=== PATIENT | male | born 1975 | race Caucasian/White ===

== ENCOUNTER 2016-12-27 12:03 | Observation (INO) ==
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
[2016-12-27 13:01] LABS: Basophils # 0.1 K/mcL (0.0-0.2); Basophils % 0.6 %; Eosinophils # 0.2 K/mcL (0.0-0.6); Eosinophils % 2.7 %; Hematocrit 46.7 % (37.5-50.1); Hemoglobin 15.6 g/dL (12.9-16.9); Immature Granulocytes % 0.2 % (0-4); Lymphocytes # 2.8 K/mcL (0.6-4.6); Lymphocytes % 33.7 %; Mean Corpuscular HGB Conc 33.4 g/dL (31.6-35.5); Mean Corpuscular Hemoglobin 29.5 pg (28.0-33.3); Mean Corpuscular Volume 88.3 fL (83.0-100.0); Mean Platelet Volume 9.4 fL (9.4-12.4); Monocytes # 0.7 K/mcL (0.0-1.3); Monocytes % 8.5 %; Neutrophils # 4.5 K/mcL (1.6-8.9); Platelet Count 284 K/mcL (140-400); Red Blood Count 5.29 M/mcL (4.19-5.50); Red Cell Distribution Width 11.9 % (11.5-14.5); Segmented Neutrophils % 54.3 %
[2016-12-27 13:16] LABS: Alanine Aminotransferase 36 Units/L (0-55); Albumin 4.2 g/dL (3.5-5.0); Alkaline Phosphatase 86 Units/L (38-126); Aspartate Amino Transferase 34 Units/L (5-34); BUN/Creatinine Ratio 19 (6-26); Blood Urea Nitrogen 22 mg/dL (8-26); Calcium 9.7 mg/dL (8.6-10.8); Carbon Dioxide 24 mEq/L (19-29); Chloride 100 mEq/L (98-109); Globulin 4.1 g/dL (2.4-3.5); Glucose 92 mg/dL (70-99); Osmolality,Calculated 277 (280-300); Potassium 3.4 mEq/L (3.5-4.5); Sodium 132 mEq/L (136-145); Total Protein 8.3 g/dL (6.0-8.3); eGFR For African Americans > 60 (> 60); eGFR For Non-African Americans > 60 (> 60)
[2016-12-27 13:22] LABS: Acetaminophen < 1.0 mcg/mL (10-30); Ethanol < 10 mg/dL (0-10); Salicylate < 5.0 mg/dL (15-30)
[2016-12-27 13:31] LABS: Amphetamine Screen,Urine Positive ng/mL (Cutoff=1000); Barbiturate Screen,Urine Negative ng/mL (Cutoff=200); Benzodiazepines Screen,Urine Positive ng/mL (Cutoff=200); Cannabinoid Screen,Urine Positive ng/mL (Cutoff = 50); Cocaine Screen,Urine Negative ng/mL (Cutoff= 300); Opiate Screen,Urine Negative ng/mL (Cutoff=300); Phencyclidine Screen,Urine Negative ng/mL (Cutoff=25)
[2016-12-27] MEDS ORDERED: Ammonia Inhalant AMPUL IH ONE (15:15)
[2016-12-27] MEDS ORDERED: Mag Hydrox/Al Hydrox/Simeth 30 ML UDC PO PRN (19:11)
[2016-12-27] MEDS ORDERED: Haloperidol Lactate 5 MG/ML VIAL IM PRN (19:11)
[2016-12-27] MEDS ORDERED: traZODone 50 MG TABLET PO PRN (19:11)
[2016-12-27] MEDS ORDERED: MOM Conc 10 ML UD.LIQ PO PRN (19:11)
[2016-12-27] MEDS ORDERED: Ibuprofen 400 MG TABLET PO PRN (19:11)
[2016-12-27] MEDS ORDERED: *HR* LORazepam 2 MG/ML VIAL IM PRN (19:11)
[2016-12-27] MEDS ORDERED: *HR* LORazepam 1 MG TABLET PO PRN (19:11)
[2016-12-27] MEDS ORDERED: hydrOXYzine pamoate 25 MG CAPSULE PO PRN (19:11)
[2016-12-27] MEDS ORDERED: *HR* LORazepam 2 MG/ML VIAL IVP ONE (19:39)
[2016-12-27] MEDS ORDERED: Ziprasidone injection 20 MG/ML VIAL IM ONE ×2 (20:32→20:35)
[2016-12-27] MEDS ORDERED: Nicotine 2 MG GUM BC PRN (21:49)
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
[2016-12-28 11:37] VITALS: BP 123/78
== END 2016-12-28 14:05 | disposition home or self-care (01) ==
LOC: EMEROO 12:03 → INTOOBSV 19:08 → 1ANU 19:08
PROVIDERS: ADMIT Psychiatry & Neurology Psychiatry; ATTEND Psychiatry & Neurology Psychiatry

== ENCOUNTER 2017-01-19 14:46 | Observation (INO) ==
[2017-01-19 15:37] LABS: Basophils # 0.1 K/mcL (0.0-0.2); Basophils % 0.9 %; Eosinophils # 0.2 K/mcL (0.0-0.6); Eosinophils % 3.1 %; Hemoglobin 15.5 g/dL (12.9-16.9); Immature Granulocytes % 0.1 % (0-4); Lymphocytes # 2.8 K/mcL (0.6-4.6); Lymphocytes % 42.2 %; Mean Corpuscular HGB Conc 33.7 g/dL (31.6-35.5); Mean Corpuscular Hemoglobin 29.6 pg (28.0-33.3); Monocytes # 0.6 K/mcL (0.0-1.3); Monocytes % 8.4 %; Platelet Count 355 K/mcL (140-400); Red Blood Count 5.23 M/mcL (4.19-5.50); Red Cell Distribution Width 11.9 % (11.5-14.5); Segmented Neutrophils % 45.3 %
[2017-01-19 15:52] LABS: BUN/Creatinine Ratio 15 (6-26); Blood Urea Nitrogen 16 mg/dL (8-26); Calcium 9.7 mg/dL (8.6-10.8); Carbon Dioxide 27 mEq/L (19-29); Chloride 104 mEq/L (98-109); Glucose 93 mg/dL (70-99); Osmolality,Calculated 289 (280-300); Potassium 3.8 mEq/L (3.5-4.5); Sodium 139 mEq/L (136-145); eGFR For African Americans > 60 (> 60); eGFR For Non-African Americans > 60 (> 60)
[2017-01-19 15:55] LABS: Acetaminophen < 1.0 mcg/mL (10-30); Ethanol < 10 mg/dL (0-10); Salicylate < 5.0 mg/dL (15-30)
[2017-01-19] MEDS ORDERED: *HR* LORazepam 1 MG TABLET PO ONE (16:07)
--- NOTE | 2017-01-19 16:07 | Emergency Department Note ---
Disposition Clinical Impression: Psychosis Qualifiers: Psychosis type: other Qualified Code(s): F28 - Other psychotic disorder not due to a substance or known physiological condition Disposition: Admitted As Inpatient Condition: Fair Referrals: NONE,PCP [Primary Care Provider] - Forms: ED Satisfaction Letter Time of Disposition: 20:02 Psych HPI - General Chief Complaint: ED Psychiatric Symptoms Stated Complaint: hallucinations Time Seen by Provider: 01/19/17 14:49 Source: EMS - History of Present Illness HPI Narrative: Mr. Peguero is a 41-year-old male with past medical history of anxiety and depression. He presents to the ED with a 1 day history of possible visual hallucinations. Patient was mandated here by law enforcement as he was found with a scope on his BB gun trying to catch his neighbors in the act of stealing his possessions. Patient says he caught his neighbors staring at him in the [place] with their faces painted white with black stripes. Patient said he has been so tired lately that he used methamphetamine so he could work to provide for his family. Patient is very confused upon questioning. 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 He has been very embarrassed about this diagnosis and has not sought out treatment. The last several months the patient's personality has changed significantly and he has become very somnolent. She states that she has been scared as he seems to be having these recurrent hallucinations. - Related Data Home Medications Medication Instructions Recorded Confirmed Paxil 12/27/16 Xanax 12/27/16 Allergies Allergy/AdvReac Type Severity Reaction Status Date / Time No Known Allergies Allergy Verified 01/19/17 14:47 All systems ED: reviewed and negative except as stated. Review of Systems: As Per HPI Constitutional: Denies: fever Cardiovascular: Denies: chest pain, palpitations Respiratory: Denies: cough, dyspnea Gastrointestinal: Denies: abdominal pain, nausea, vomiting Genitourinary: Denies: urgency, dysuria Neurological: Reports: confusion. Denies: headache, abnormal gait Endocrine: Reports: fatigue Past Medical History - Past Medical History Medical history: Reports: no medical history Psychiatric history: Reports: anxiety, depression, previous psychiatric hospitalization - Social History Smoking Status: Current every day smoker Smokeless Tobacco Status: No Alcohol use: Reports: rarely Drug use: Reports: marijuana, methamphetamine Physical Exam - General Limitations: altered mental status General appearance: alert, anxious - Head Head exam: atraumatic, normocephalic - Eye Eye exam: Present: PERRL, EOMI, conjunctival injection. Absent: nystagmus - ENT ENT exam: normal exam - Respiratory Respiratory exam: Present: normal lung sounds bilaterally. Absent: respiratory distress, wheezes, stridor - Cardiovascular Cardiovascular exam: Present: regular rate, normal rhythm. Absent: systolic murmur, diastolic murmur, rubs, gallop - Abdominal Exam Abdominal exam: Present: soft, Non-Tender - Extremities Exam Extremities exam: Present: other (Patient with multiple scratches all over his extremities. No lacerations. ). Absent: pedal edema - Neurological Exam Neurological exam: Present: alert, oriented X3, CN II-XII intact - Psychiatric Psychiatric exam: Present: other (Patient seems confused and has a difficult time concentrating. Somewhat somnolent.) Course Course Narrative: 41-year-old male with past medical history of Luh disease presents by law enforcement with several day history of potential hallucinations. Will order psychiatric clearance labs and testing. Will attempt to contact patient' s - Reevaluation(s) Reevaluation #1: Psych 1A has visited the patient. Fe from [facility] spoke with patient's . Patient was just admitted for almost identical circumstances 1 week ago. Patient 's disclosed past medical history and confirms the patient's personality has changed significantly over the past few months. [facility] will admit patient after we order a scan of her head. CT without contrast was ordered. Reevaluation #2: CT scan of the head shows no acute abnormalities. Will transfer to . Vital Signs Temperature 97.5 F L 01/19/17 14:49 Pulse Rate 96 01/19/17 14:49 Respiratory Rate 22 01/19/17 14:49 Blood Pressure 135/91 01/19/17 14:49 O2 Sat by Pulse Oximetry 97 01/19/17 14:49 Temperature 97.5 F L 01/19/17 14:49 Pulse Rate 82 01/19/17 15:19 Respiratory Rate 22 01/19/17 15:19 Blood Pressure 132/91 01/19/17 15:19 O2 Sat by Pulse Oximetry 100 01/19/17 15:19 Oxygen Delivery Oxygen Delivery Room Air Psych - Medical Records Medical records reviewed: Yes I reviewed the patient's medical records. - Lab Data Lab results reviewed: Yes I reviewed the patient's lab results. Result diagrams: 01/19/17 15:24 01/19/17 15:24 Lab Results 01/19/17 01/19/17 01/19/17 Range/Units 15:18 15:20 15:20 WBC (4.3-11.1) K/mcL RBC (4.19-5.50) M/mcL Hgb (12.9-16.9) g/dL Hct (37.5-50.1) % MCV (83.0-100.0) fL MCH (28.0-33.3) pg MCHC (31.6-35.5) g/dL RDW (11.5-14.5) % Plt Count (140-400) K/mcL MPV (9.4-12.4) fL Immature Gran % (0-4) % Seg Neutrophils % % Lymphocytes % % Monocytes % % Eosinophils % % Basophils % % Neutrophils # (1.6-8.9) K/mcL Lymphocytes # (0.6-4.6) K/mcL Monocytes # (0.0-1.3) K/mcL Eosinophils # (0.0-0.6) K/mcL Basophils # (0.0-0.2) K/mcL Sodium (136-145) mEq/L Potassium (3.5-4.5) mEq/L Chloride (98-109) mEq/L Carbon Dioxide (19-29) mEq/L BUN (8-26) mg/dL Creatinine (0.72-1.25) mg/dL Est GFR ( Amer) (> 60) Est GFR (Non-Af Amer) (> 60) BUN/Creatinine Ratio (6-26) Glucose (70-99) mg/dL POC Glucose 89 (58-89) Calculated Osmolality (280-300) Calcium (8.6-10.8) mg/dL Urine Color Dark Yellow (Yellow) Urine Clarity Cloudy A (Clear) Urine pH 5.5 (5.0-8.0) pH Units Ur Specific [place] > 1.030 H (1.010-1.025) Urine Protein Trace (Neg-Trace) mg/dL Urine Glucose (UA) Normal (Normal) mg/dL Urine Ketones Trace H (Negative) mg/dL Urine Blood Trace H (Negative) Urine Nitrite Negative (Negative) Urine Bilirubin Small H (Negative) Urine Urobilinogen Normal (Normal) mg/dL Ur Leukocyte Esterase Negative (Negative) Urine Microscopic RBC 3-5 H (0-3) per hpf Urine Microscopic WBC 0-3 (0-3) per hpf Ur Squamous Epith Cells Many H (None-Few) per lpf Urine Bacteria None Seen (None-Few) per hpf Hyaline Casts None Seen (None-Few) per lpf Urine Mucus Many H (Few) Urine Sperm Present Salicylates (15-30) mg/dL Urine Opiates Screen Negative (Mcnylr=559) ng/mL Acetaminophen (10-30) mcg/mL Ur Barbiturates Screen Negative (Jpkrgw=535) ng/mL Ur Phencyclidine Scrn Negative (Cutoff=25) ng/mL Ur Amphetamines Screen Positive H (Qwucbm=4502) ng/mL U Benzodiazepines Scrn Positive H (Cwptdy=245) ng/mL Urine Cocaine Screen Positive H (Cutoff= 300) ng/mL U Marijuana (THC) Screen Negative (Cutoff = 50) ng/mL Ethyl Alcohol (0-10) mg/dL 01/19/17 01/19/17 Range/Units 15:24 15:24 WBC 6.7 (4.3-11.1) K/mcL RBC 5.23 (4.19-5.50) M/mcL Hgb 15.5 (12.9-16.9) g/dL Hct 46.0 (37.5-50.1) % MCV 88.0 (83.0-100.0) fL MCH 29.6 (28.0-33.3) pg MCHC 33.7 (31.6-35.5) g/dL RDW 11.9 (11.5-14.5) % Plt Count 355 (140-400) K/mcL MPV 9.0 L (9.4-12.4) fL Immature Gran % 0.1 (0-4) % Seg Neutrophils % 45.3 % Lymphocytes % 42.2 % Monocytes % 8.4 % Eosinophils % 3.1 % Basophils % 0.9 % Neutrophils # 3.0 (1.6-8.9) K/mcL Lymphocytes # 2.8 (0.6-4.6) K/mcL Monocytes # 0.6 (0.0-1.3) K/mcL Eosinophils # 0.2 (0.0-0.6) K/mcL Basophils # 0.1 (0.0-0.2) K/mcL Sodium 139 (136-145) mEq/L Potassium 3.8 (3.5-4.5) mEq/L Chloride 104 (98-109) mEq/L Carbon Dioxide 27 (19-29) mEq/L BUN 16 (8-26) mg/dL Creatinine 1.07 (0.72-1.25) mg/dL Est GFR ( Amer) > 60 (> 60) Est GFR (Non-Af Amer) > 60 (> 60) BUN/Creatinine Ratio 15 (6-26) Glucose 93 (70-99) mg/dL POC Glucose (58-89) Calculated Osmolality 289 (280-300) Calcium 9.7 (8.6-10.8) mg/dL Urine Color (Yellow) Urine Clarity (Clear) Urine pH (5.0-8.0) pH Units Ur Specific [place] (1.010-1.025) Urine Protein (Neg-Trace) mg/dL Urine Glucose (UA) (Normal) mg/dL Urine Ketones (Negative) mg/dL Urine Blood (Negative) Urine Nitrite (Negative) Urine Bilirubin (Negative) Urine Urobilinogen (Normal) mg/dL Ur Leukocyte Esterase (Negative) Urine Microscopic RBC (0-3) per hpf Urine Microscopic WBC (0-3) per hpf Ur Squamous Epith Cells (None-Few) per lpf Urine Bacteria (None-Few) per hpf Hyaline Casts (None-Few) per lpf Urine Mucus (Few) Urine Sperm Salicylates < 5.0 L (15-30) mg/dL Urine Opiates Screen (Zuxgvd=724) ng/mL Acetaminophen < 1.0 L (10-30) mcg/mL Ur Barbiturates Screen (Kbyimt=929) ng/mL Ur Phencyclidine Scrn (Cutoff=25) ng/mL Ur Amphetamines Screen (Iptjgi=0914) ng/mL U Benzodiazepines Scrn (Fssjtj=901) ng/mL Urine Cocaine Screen (Cutoff= 300) ng/mL U Marijuana (THC) Screen (Cutoff = 50) ng/mL Ethyl Alcohol < 10 (0-10) mg/dL - Radiology Data Head CT 01/19/17 18:32 IMPRESSION: No acute intracranial abnormality. D/ / Abelardo Young MD / Abelardo Young MD Interpreting Provider: Abelardo Young MD Psychiatric Medical Clearance - Medical Clearance Checklist Does the patient have a NEW psychiatric condition?: No Any abnormalities indicating possible medical illness?: No Any history of medical issues?: No Medical History: No Social History Section defined Any abnormal vital signs prior to transfer?: No Current Vitals: Last Vital Signs Temp 97.5 F L 01/19/17 14:49 Pulse 82 01/19/17 15:19 Resp 22 01/19/17 15:19 BP 132/91 01/19/17 15:19 Pulse Ox 100 01/19/17 15:19 Is the patient intoxicated or cognitively impaired?: No (Patient with positive tox) Psychiatric Lab Panel: Drug Levels and Toxicity 01/19/17 01/19/17 15:20 15:24 Urine Opiates Screen Negative Acetaminophen < 1.0 L Ur Barbiturates Screen Negative Ur Phencyclidine Scrn Negative Ur Amphetamines Screen Positive H U Benzodiazepines Scrn Positive H Urine Cocaine Screen Positive H U Marijuana (THC) Screen Negative Ethyl Alcohol < 10 Any abnormalities on the physical exam?: No Any abnormal labs?: Yes (Positive UDS) Abnormal Labs: Abnormal lab results MPV 9.0 fL (9.4-12.4) L 01/19/17 15:24 Urine Clarity Cloudy (Clear) A 01/19/17 15:20 Ur Specific [place] > 1.030 (1.010-1.025) H 01/19/17 15:20 Urine Ketones Trace mg/dL (Negative) H 01/19/17 15:20 Urine Blood Trace (Negative) H 01/19/17 15:20 Urine Bilirubin Small (Negative) H 01/19/17 15:20 Urine Microscopic RBC 3-5 per hpf (0-3) H 01/19/17 15:20 Ur Squamous Epith Cells Many per lpf (None-Few) H 01/19/17 15:20 Urine Mucus Many (Few) H 01/19/17 15:20 Salicylates < 5.0 mg/dL (15-30) L 01/19/17 15:24 Acetaminophen < 1.0 mcg/mL (10-30) L 01/19/17 15:24 Ur Amphetamines Screen Positive ng/mL (Qkcxxl=3010) H 01/19/17 15:20 U Benzodiazepines Scrn Positive ng/mL (Ukxzfh=312) H 01/19/17 15:20 Urine Cocaine Screen Positive ng/mL (Cutoff= 300) H 01/19/17 15:20 Does the patient require durable medical equiptment?: No Is the patient ambulatory?: Yes Is the patient a fall risk?: No Has the patient been medically cleared?: Yes Any acute medical condition require Tx prior to transfer?: No Statement of Medical Clearance: I have evaluated the patient, reviewed diagnostic information, and certify that the patient's medical condition is sufficiently stable that transfer to the psychiatric unit does not pose a significant risk of deterioration.
--- NOTE | 2017-01-19 16:08 | Emergency Department Note ---
START Narrative - START START: I examined this patient and my medical decision-making was reviewed with the MERCHANDISE EXAMINER/PA/Advanced Practice Nurse/Resident Physician. I agree with the documented findings, disposition and treatment plan as described except to the extent set forth below. the patient presents because the police wanted him to come to the stories that he pointing guns at home the patient does admit to that. He does use methamphetamine. He denies any hallucinations at this time. [id number]
[2017-01-19 16:49] LABS: Bilirubin,Urine Small (Negative); Blood,Urine Trace (Negative); Clarity,Urine Cloudy (Clear); Color,Urine Dark Yellow (Yellow); Glucose,Urine (UA) Normal (Normal); Ketones,Urine Trace mg/dL (Negative); Leukocyte Esterase,Urine Negative (Negative); Nitrite,Urine Negative (Negative); PH,Urine 5.5 pH Units (5.0-8.0); Protein,Urine Trace mg/dL (Neg-Trace); Specific Gravity,Urine > 1.030 (1.010-1.025); Urobilinogen,Urine Normal (Normal)
[2017-01-19 16:51] LABS: Bacteria,Urine None Seen per hpf (None-Few); Squamous Epithelial Cell,Urine Many per lpf (None-Few); WBC,Urine 0-3 per hpf (0-3)
[2017-01-19 17:00] LABS: Amphetamine Screen,Urine Positive ng/mL (Cutoff=1000); Barbiturate Screen,Urine Negative ng/mL (Cutoff=200); Benzodiazepines Screen,Urine Positive ng/mL (Cutoff=200); Cannabinoid Screen,Urine Negative ng/mL (Cutoff = 50); Cocaine Screen,Urine Positive ng/mL (Cutoff= 300); Opiate Screen,Urine Negative ng/mL (Cutoff=300); Phencyclidine Screen,Urine Negative ng/mL (Cutoff=25)
[2017-01-19 17:02] LABS: Mucus,Urine Many (Few); Sperm,Urine Present
[2017-01-19 17:04] LABS: Hyaline Casts,Urine None Seen per lpf (None-Few)
[2017-01-19] MEDS ORDERED: hydrOXYzine pamoate 25 MG CAPSULE PO PRN (20:53)
[2017-01-19] MEDS ORDERED: *HR* LORazepam 2 MG/ML VIAL IM PRN (20:53)
[2017-01-19] MEDS ORDERED: Mag Hydrox/Al Hydrox/Simeth 30 ML UDC PO PRN (20:53)
[2017-01-19] MEDS ORDERED: *HR* LORazepam 1 MG TABLET PO PRN (20:53)
[2017-01-19] MEDS ORDERED: Haloperidol Lactate 5 MG/ML VIAL IM PRN (20:53)
[2017-01-19] MEDS ORDERED: MOM Conc 10 ML UD.LIQ PO PRN (20:53)
[2017-01-19] MEDS ORDERED: Acetaminophen 325 MG TABLET PO PRN (20:53)
--- NOTE | 2017-01-20 14:05 | Psychiatry History & Physical ---
Date of Encounter: 01/20/17 Time of Encounter: 13:45 History of Present Illness Patient Stated Chief Complaint: it was same thing like before. Medicare Admission Attestation: For traditional Medicare patients the provided hospital inpatient services are reasonable and necessary and in the case of services not specified as inpatient -only under 42 CFR 419.22 (n), that they are appropriately provided as inpatient services in accordance 42 CFR 412.3. For Critical Access Hospital the patient may reasonably be expected to be discharged or transferred to a hospital within 96 hours after admission to the Critical Access Hospital. Admitted From: Emergency Dept Plans for Post Hospital Care: Home History of Present Illness: Mr. Garcia is a 41 year old male evaluated today. he has h/o depression and anxiety and lives with his and kids. he was bought to ER he was combative and given prn meds. patient is at present very irritable, it bothers me, i am tired of people and neighbors stealing and when i call the crusher feeder they send me here, he had FAIZA gun and someone called, this is crazy man , i want to know who the caller was. the crap is going on right now,states he did meth one time , last week , he was in ER last week with acute psychosis and sent home, this time he is very irritable, rothman , impulsive and this is bull crap. pt has been here to 1A before as per him few years ago. it does not do anything to him. i work and i get drug test all the time. he is wanting his medications. states i do not need to be here. he is poor historian and focused on getting out as" it is al bull crap." Past Med Surg Social Fam HX - Past Medical History Medical history: non-contributory - Past Psychiatric History Psychiatric history: Reports: anxiety, depression Family psychiatric history: Yes Family History of Suicide: Attempted - Social History Smoking Status: Current every day smoker Smokeless Tobacco Status: No Alcohol use: rarely Drug use: cocaine, marijuana, methamphetamine, other Occupational status: employed Current living situation: Home, With Family Activity Level: Independent ambulation Recent Out of Country Travel Within the Last 8 Weeks: No Exposure or Possible Exposure to Illness During Travel: No Medications & Allergies ALPRAZolam [Xanax 1 MG Tablet] 1 mg PO TID PRN 12/27/16 [History] PARoxetine HCl [Paroxetine HCl] 20 mg PO DAILY 12/27/16 [History] Allergies No Known Allergies Allergy (Verified 01/19/17 14:47) Review of Systems Constitutional: Denies: fever, chills, weakness, weight change Eyes: Denies: eye pain, vision change Ears, Nose, Throat: Denies: ear pain, throat pain, dental pain, hearing loss, congestion Cardiovascular: Denies: chest pain, palpitations, dyspnea on exertion Respiratory: Denies: cough, dyspnea, wheezes Gastrointestinal: Denies: abdominal pain, nausea, vomiting, diarrhea, constipation Genitourinary male: Denies: urgency, dysuria, frequency, genital lesions Genitourinary female: Denies: urgency, dysuria, frequency, abnormal menses, dyspareunia Musculoskeletal: Denies: joint swelling, joint pain Integumentary: Denies: rash, lesions, pruritus Neurological: Denies: headache, weakness, numbness, memory loss Psychiatric: Reports: anxiety, abnormal sleep pattern, irritability, mood swings Endocrine: Denies: fatigue, heat or cold intolerance Hematologic/Lymphatic: Denies: easy bruising, lymphadenopathy Allergic/Immunologic: Denies: urticaria, itchy eyes Mental Status Exam Patient orientation: Yes Person, Yes Time, Yes Place Level of alertness: Alert Patient appearance: Unkempt Behavior: hostile, impulsive Psychomotor activity: Increased Eye contact: Minimal Contact Mood description: Angry, Irritable Affect description: congruent with mood Speech pattern: Excessive Speech volume: Loud Thought process: Circumstantial Thought content: Yes Paranoid delusion Attention span: Unable to Focus, Unable to Sustain Attention Memory description: Grossly Intact Patient reliability: Not Reliable Historian Intelligence estimate: Average Judgment: Limited Insight: Minimal Exam - HEENT Head exam IM: Present: atraumatic, normal inspection, normocephalic Eye exam IM: Present: normal appearance ENT exam IM: Present: normal exam - Neurological Neurological exam IM: Present: alert, CN II-XII intact, normal gait, oriented X3 - Skin Skin exam IM: Present: dry, warm Results - Vital Signs Vital signs: Temp Pulse Resp BP Pulse Ox 97.4 F L 61 16 118/76 100 01/20/17 09:00 01/20/17 09:00 01/20/17 09:00 01/20/17 09:00 01/19/17 15:19 - Labs Labs: Laboratory Last Values WBC 6.7 K/mcL (4.3-11.1) 01/19/17 15:24 RBC 5.23 M/mcL (4.19-5.50) 01/19/17 15:24 Hgb 15.5 g/dL (12.9-16.9) 01/19/17 15:24 Hct 46.0 % (37.5-50.1) 01/19/17 15:24 MCV 88.0 fL (83.0-100.0) 01/19/17 15:24 MCH 29.6 pg (28.0-33.3) 01/19/17 15:24 MCHC 33.7 g/dL (31.6-35.5) 01/19/17 15:24 RDW 11.9 % (11.5-14.5) 01/19/17 15:24 Plt Count 355 K/mcL (140-400) 01/19/17 15:24 MPV 9.0 fL (9.4-12.4) L 01/19/17 15:24 Immature Gran % 0.1 % (0-4) 01/19/17 15:24 Seg Neutrophils % 45.3 % 01/19/17 15:24 Lymphocytes % 42.2 % 01/19/17 15:24 Monocytes % 8.4 % 01/19/17 15:24 Eosinophils % 3.1 % 01/19/17 15:24 Basophils % 0.9 % 01/19/17 15:24 Neutrophils # 3.0 K/mcL (1.6-8.9) 01/19/17 15:24 Lymphocytes # 2.8 K/mcL (0.6-4.6) 01/19/17 15:24 Monocytes # 0.6 K/mcL (0.0-1.3) 01/19/17 15:24 Eosinophils # 0.2 K/mcL (0.0-0.6) 01/19/17 15:24 Basophils # 0.1 K/mcL (0.0-0.2) 01/19/17 15:24 Sodium 139 mEq/L (136-145) 01/19/17 15:24 Potassium 3.8 mEq/L (3.5-4.5) 08/09/17 15:24 Chloride 104 mEq/L (98-109) 01/19/17 15:24 Carbon Dioxide 27 mEq/L (19-29) 01/19/17 15:24 BUN 16 mg/dL (8-26) 01/19/17 15:24 Creatinine 1.07 mg/dL (0.72-1.25) 01/19/17 15:24 Est GFR ( Amer) > 60 (> 60) 01/19/17 15:24 Est GFR (Non-Af Amer) > 60 (> 60) 01/19/17 15:24 BUN/Creatinine Ratio 15 (6-26) 01/19/17 15:24 Glucose 93 mg/dL (70-99) 01/19/17 15:24 POC Glucose 89 (58-89) 01/19/17 15:18 Calculated Osmolality 289 (280-300) 01/19/17 15:24 Calcium 9.7 mg/dL (8.6-10.8) 01/19/17 15:24 Urine Color Dark Yellow (Yellow) 01/19/17 15:20 Urine Clarity Cloudy (Clear) A 01/19/17 15:20 Urine pH 5.5 pH Units (5.0-8.0) 01/19/17 15:20 Ur Specific [place] > 1.030 (1.010-1.025) H 01/19/17 15:20 Urine Protein Trace mg/dL (Neg-Trace) 01/19/17 15:20 Urine Glucose (UA) Normal mg/dL (Normal) 01/19/17 15:20 Urine Ketones Trace mg/dL (Negative) H 01/19/17 15:20 Urine Blood Trace (Negative) H 01/19/17 15:20 Urine Nitrite Negative (Negative) 01/19/17 15:20 Urine Bilirubin Small (Negative) H 01/19/17 15:20 Urine Urobilinogen Normal mg/dL (Normal) 01/19/17 15:20 Ur Leukocyte Esterase Negative (Negative) 01/19/17 15:20 Urine Microscopic RBC 3-5 per hpf (0-3) H 01/19/17 15:20 Urine Microscopic WBC 0-3 per hpf (0-3) 01/19/17 15:20 Ur Squamous Epith Cells Many per lpf (None-Few) H 01/19/17 15:20 Urine Bacteria None Seen per hpf (None-Few) 01/19/17 15:20 Hyaline Casts None Seen per lpf (None-Few) 01/19/17 15:20 Urine Mucus Many (Few) H 01/19/17 15:20 Urine Sperm Present 01/19/17 15:20 Salicylates < 5.0 mg/dL (15-30) L 01/19/17 15:24 Urine Opiates Screen Negative ng/mL (Wjmbgq=404) 01/19/17 15:20 Acetaminophen < 1.0 mcg/mL (10-30) L 01/19/17 15:24 Ur Barbiturates Screen Negative ng/mL (Razhjd=416) 01/19/17 15:20 Ur Phencyclidine Scrn Negative ng/mL (Cutoff=25) 01/19/17 15:20 Ur Amphetamines Screen Positive ng/mL (Fyjzag=8244) H 01/19/17 15:20 U Benzodiazepines Scrn Positive ng/mL (Elezbw=227) H 01/19/17 15:20 Urine Cocaine Screen Positive ng/mL (Cutoff= 300) H 01/19/17 15:20 U Marijuana (THC) Screen Negative ng/mL (Cutoff = 50) 01/19/17 15:20 Ethyl Alcohol < 10 mg/dL (0-10) 01/19/17 15:24 Assessment and Plan (1) Drug-induced psychotic disorder Current visit: Yes Status: Acute Plan: Admit inpatient for safety and stabilization, Close observation, Suicide Precautions per unit protocol, Encourage participation in unit milieu, Group Therapy, Monitor sleep, Monitor appetite, Family/Supportive other meeting Risks, benefits, side effects, alternatives discussed w/pt: Yes Patient agreeable to treatment: Yes Plans for Post Hospital Care: Home Qualifiers: Complication of substance-induced condition: with delusions Qualified Code( s): F19.950 - Other psychoactive substance use, unspecified with psychoactive substance-induced psychotic disorder with delusions (2) Major depression Current visit: Yes Status: Acute Plan: Admit inpatient for safety and stabilization, Close observation, Suicide Precautions per unit protocol, Encourage participation in unit milieu, Group Therapy, Monitor sleep, Monitor appetite, Family/Supportive other meeting Risks, benefits, side effects, alternatives discussed w/pt: Yes Patient agreeable to treatment: Yes Plans for Post Hospital Care: Home Qualifiers: Major depression recurrence: recurrent Active/Remission status: currently active Qualified Code(s): F33.1 - Major depressive disorder, recurrent, moderate (3) Panic disorder Current visit: Yes Status: Chronic Plan: Close observation, Encourage participation in unit milieu, Group Therapy, Monitor sleep, Monitor appetite Risks, benefits, side effects, alternatives discussed w/pt: Yes Patient agreeable to treatment: Yes Plans for Post Hospital Care: Home
[2017-01-20] MEDS: ALPRAZolam 1 MG TABLET PO PRN ×2 (14:30→20:42)
[2017-01-20] MEDS: risperiDONE 0.25 MG TABLET PO SCH (22:27)
[2017-01-21 09:10] VITALS: BP 113/77
[2017-01-21] MEDS: ALPRAZolam 1 MG TABLET PO PRN (09:43)
[2017-01-21] MEDS: risperiDONE 0.25 MG TABLET PO SCH (09:44)
--- NOTE | 2017-01-21 11:35 | Psychiatry Progress Note ---
Date of Encounter: 01/21/17 Time of Encounter: 11:20 Subjective Interval history: Patient seen today , case d/w team , he refused risperdal and cogentin , feels does not need it , he does not want change his anti depressant, states i am not an angry person , i am just angry bc i was put in this situation. he denies drug use, tox. positive for meth and cocain. he said i just do not get sleep and then i am tired and use meth.to go to work. his feels medications not working. he has tried seroquel,trazodone, elavil and ambien , they give him RLS. he has been sleeping here , last night slept good. he denies any suicidal ideation, no hi, no psychosis. Review of Systems Psychiatric: Reports: depression, anxiety, abnormal sleep pattern, irritability Objective: Exam Patient orientation: Yes Person, Yes Time, Yes Place Level of alertness: Alert Patient appearance: Appropriate Behavior: cooperative Psychomotor activity: Normal Eye contact: Maintains Eye Contact Mood description: Euthymic/stable Affect description: congruent with mood Speech pattern: Normal rate, Normal rhythm, Normal tone Speech volume: Normal Thought process: Logical Thought content: Yes Intact Judgment: Good Insight: Partial Results - Vital Signs Vital Signs: Temp Pulse Resp BP Pulse Ox 97.4 F L 67 16 113/77 100 01/21/17 09:00 01/21/17 09:00 01/21/17 09:00 01/21/17 09:00 01/19/17 15:19 Assessment and Plan (1) Drug-induced psychotic disorder Current visit: Yes Status: Acute Risks, benefits, side effects, alternatives discussed w/pt: Yes Patient agreeable to treatment: Yes Qualifiers: Complication of substance-induced condition: with delusions Qualified Code( s): F19.950 - Other psychoactive substance use, unspecified with psychoactive substance-induced psychotic disorder with delusions (2) Major depression Current visit: Yes Status: Acute Risks, benefits, side effects, alternatives discussed w/pt: Yes Patient agreeable to treatment: Yes Qualifiers: Major depression recurrence: recurrent Active/Remission status: currently active Qualified Code(s): F33.1 - Major depressive disorder, recurrent, moderate (3) Panic disorder Current visit: Yes Status: Chronic Risks, benefits, side effects, alternatives discussed w/pt: Yes Patient agreeable to treatment: Yes Consult Discharge Plan - Plan Referrals: NONE,PCP [Primary Care Provider] -
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
== END 2017-01-21 14:05 | disposition home or self-care (01) ==
LOC: 1ANU 14:46 → EMEROO 14:46 → 1ANU 20:40
PROVIDERS: ADMIT Psychiatry & Neurology Psychiatry; ATTEND Psychiatry & Neurology Psychiatry